=== PATIENT | male | born 1955 | race Two or more races ===

== ENCOUNTER 2018-05-14 09:40 | Emergency (ER) | payer BC, OTHER ==
[2018-05-14 09:50] VITALS: BP 122/89; PULSE 84; TEMP 99; BMI 25.7
[2018-05-14] MEDS ORDERED: ACETAMINOPHEN 500 MG TABLET (FP) PO ONE (11:41)
[2018-05-14] MEDS ORDERED: ACETAMINOPHEN 500 MG TABLET (FP) ONE (11:42)
--- NOTE | 2018-05-14 12:03 | PDOC ---
History of Present Illness - General Chief Complaint: Cold Symptoms Stated Complaint: FEVER, COUGH Time Seen by Provider: 05/14/18 11:36 - History of Present Illness Initial Comments: 05/14/18 12:00 62-year-old male with a past medical history significant for HIV infection and acid reflux presents for evaluation of cough fever chills night sweats 3 days. Past History - Past Medical History Allergies/Adverse Reactions: Allergies Allergy/AdvReac Type Severity Reaction Status Date / Time No Known Allergies Allergy Verified 05/14/18 09:46 Home Medications: Ambulatory Orders Sulfamethoxazole/Trimethoprim [Bactrim Ds -] 1 tab PO BID #14 tablet 05/14/18 COPD: No - Immunization History Immunization Up to Date: Yes - Suicide/Smoking/Psychosocial Hx Smoking History: Never smoked Hx Alcohol Use: No Drug/Substance Use Hx: No Substance Use Type: None Review of Systems - Review of Systems Constitutional: Yes: See HPI, Fever, Malaise, Night Sweats Respiratory: Yes: Cough *Physical Exam - Vital Signs Last Vital Signs Temp Pulse Resp BP Pulse Ox 99.0 F 84 16 122/89 96 05/14/18 09:47 05/14/18 09:47 05/14/18 09:47 05/14/18 09:47 05/14/18 09:47 - Physical Exam Comments: 05/14/18 12:01 HEAD: NC/AT EYES: Conjuntiva clear Ears: Canals and TM's normal NOSE: No d/c THROAT: Moist mucous membrances, oral pharanx clear, uvula midline NECK: Supple without adenopathy CARDIAC: S1 S2 LUNGS: CTA Full and Equal breath sounds ABDOMEN: Soft NT ND MS: Full ROM in all joints without edema NEUROLOGIC: No gross sensory or motor deficits, NVID SKIN: Normal color and temperature no lesions or rashes ED Treatment Course - RADIOLOGY Radiology Studies Ordered: Category Date Time Status CHEST PA & LAT [RAD] Stat Radiology 05/14/18 11:37 Completed - Medications Given in the ED: ED Medications Discontinued Medications Generic Name Dose Route Start Last Admin Trade Name Freq PRN Reason Stop Dose Admin Acetaminophen 1,000 mg 05/14/18 11:41 05/14/18 11:43 Tylenol - PO 05/14/18 11:42 1,000 mg ONCE ONE Administration Medical Decision Making - Medical Decision Making 05/14/18 12:01 Chest x-rays clear benign examination we'll treat with Bactrim due to immunocompromise state *DC/Admit/Observation/Transfer Diagnosis at time of Disposition: Cough - Discharge Dispostion Disposition: HOME Condition at time of disposition: Stable Decision to Admit order: No - Prescriptions Prescriptions: Sulfamethoxazole/Trimethoprim [Bactrim Ds -] 1 tab PO BID #14 tablet - Referrals Referrals: Candelaria Shaikh MD [Primary Care Provider] - - Patient Instructions Additional Instructions: Please take the antibiotics as directed, return to the emergency room should symptoms worsen or go unresolved and follow-up with your primary care provider in one to 2 days for further evaluation and treatment options. Please finish all the antibiotics - Post Discharge Activity
== END 2018-05-14 12:10 | disposition home or self-care (01) ==
LOC: JERFT 09:40
DX: R05 Cough (principal); K21.9 Gastro-esophageal reflux disease without esophagitis; Z21 Asymptomatic human immunodeficiency virus [HIV] infection status
CPT/HCPCS: 71046-TC-FY; 99281-25

== ENCOUNTER 2018-08-03 21:07 | Emergency (ER) | payer OTHER ==
--- NOTE | 2018-08-03 21:10 | PDOC ---
Rapid Medical Evaluation Chief Complaint: Lightheaded Time Seen by Provider: 08/03/18 21:09 Medical Evaluation: Allergies Allergy/AdvReac Type Severity Reaction Status Date / Time No Known Allergies Allergy Verified 06/12/18 08:33 08/03/18 21:10 08/03/18 21:01 I performed a brief in-person evaluation of this patient. Chief complaint: BIBEMS, Feeling dizzy after taking Percocet for shingles Pertinent physical exam findings: Ambulatory without assistance, no focal neurologic deficits I have ordered the following: None Patient to proceed to the ED for further evaluation Discharge Disposition - Diagnosis Dizziness - Referrals - Patient Instructions - Post Discharge Activity
[2018-08-03 21:23] VITALS: BMI 25.7
--- NOTE | 2018-08-03 22:47 | PDOC ---
History of Present Illness - General Chief Complaint: Lightheaded Stated Complaint: Lightheaded Time Seen by Provider: 08/03/18 21:09 History Source: Patient Exam Limitations: No Limitations - History of Present Illness Initial Comments: 08/03/18 22:46 63 year old man w/ a h/o HIV (last CD4 was 775, last viral load undetectable ) brought in by EMS who presents with episode of lightheadedness that started approx 1900 today and lasted 15min after taking percocet medication for shingles pain. The patient notes that symptoms were associated chest palpitations. He reports that he only had some vegetables and fruit today. He reports one episode of nbnb emesis that occurred while in the ED. He currently complains of some dizziness but denies chest pain, shortness of breath, fevers, nausea, vomiting, diarrhea, constipation. Patient reports that his viral load is undetectable His CD4 count is 700 one month ago He takes Genvoya for HAART therapy Past History - Past Medical History Allergies/Adverse Reactions: Allergies Allergy/AdvReac Type Severity Reaction Status Date / Time No Known Allergies Allergy Verified 06/12/18 08:33 Home Medications: Ambulatory Orders Albuterol Sulfate Inhaler - [Ventolin Hfa Inhaler -] 1 - 2 inh PO Q4H 06/12/18 Azithromycin 250 mg PO DAILY 4 Days #4 tablet 06/12/18 Fluticasone Prop 0.05% Nasal [Flonase -] 1 - 2 spray NS DAILY #1 spray.pump Gabapentin [Neurontin] 300 mg PO DAILY 06/12/18 Omeprazole 40 mg PO DAILY 06/12/18 predniSONE [Deltasone -] 40 mg PO DAILY 4 Days #4 tablet 06/12/18 COPD: No CHF: No - Immunization History Immunization Up to Date: Yes - Suicide/Smoking/Psychosocial Hx Smoking History: Never smoked Have you smoked in the past 12 months: No Information on smoking cessation initiated: No Hx Alcohol Use: No Drug/Substance Use Hx: No Substance Use Type: None *Physical Exam - Vital Signs Last Vital Signs Temp Pulse Resp BP Pulse Ox 98.2 F 56 L 20 136/87 100 08/03/18 21:18 08/03/18 21:18 08/03/18 21:18 08/03/18 21:18 08/03/18 21:18 - Physical Exam Comments: 08/03/18 23:30 L sided abdominal shingles patches from abd to back rrr ctab Moderate Sedation - Procedure Monitoring Vital Signs: Procedure Monitoring Vital Signs Temperature 98.2 F 08/03/18 21:18 Pulse Rate 56 L 08/03/18 21:18 Respiratory Rate 20 08/03/18 21:18 Blood Pressure 136/87 08/03/18 21:18 O2 Sat by Pulse Oximetry (%) 100 08/03/18 21:18 ED Treatment Course - LABORATORY CBC & Chemistry Diagram: 08/03/18 23:43 08/03/18 23:43 Medical Decision Making - Medical Decision Making 08/03/18 23:31 63 year old man w/ a h/o HIV (last CD4 was 775, last viral load undetectable ) brought in by EMS who presents with episode of lightheadedness that started approx 1900 today and lasted 15min after taking percocet medication for shingles pain. The patient notes that symptoms were associated chest palpitations. He reports that he only had some vegetables and fruit today. He reports one episode of nbnb emesis that occurred while in the ED. ED Course: r/o acs vs electrolytes derangement likely patient dehydrated *DC/Admit/Observation/Transfer Diagnosis at time of Disposition: Dizziness - Discharge Dispostion Disposition: HOME Condition at time of disposition: Stable Decision to Admit order: No - Referrals Referrals: Candelaria Shaikh MD [Primary Care Provider] - - Patient Instructions Printed Discharge Instructions: DI for Dizziness-Nonvertigo Additional Instructions: You were seen in the ED for complaints of feelings of lightheadedness that lasted 15min. In the ED you were evaluated with labwork and imaging. Your results were unremarkable. There does not appear to be an acute need for immediate hospitalization. You are advised to follow up with your Primary Care Physician within 1 week. Return to the ED immediately if you experience worsening lightheadedness, dizziness, chest pain, nausea, vomiting, fevers or loss of consciousness. - Post Discharge Activity
[2018-08-03] MEDS ORDERED: METOCLOPRAMIDE HCL INJECTION 10 MG/2 ML VIAL IVPUSH ONE (23:05)
[2018-08-03] MEDS ORDERED: SODIUM CHLORIDE 1,000 ML IV SCH (23:15)
--- NOTE | 2018-08-03 23:15 | PDOC ---
Attending Attestation - HPI HPI: 08/03/18 23:56 The patient is a 63 year old female, with a significant PMH of HIV (last CD4 was 775, last viral load undetectable 03/06), shingles, who presents to the emergency department with an episode of lightheadedness at 7pm this evening. The patient states he took Percocet for shingles pain earlier today and 15 minutes later experienced an episode of lightheadedness and associated palpitations prompting the ED visit tonight. The patient denies any syncope or loss of consciousness. The patient states he only ate vegetables and fruit during the day. The patient states he had one episode of non bloody non bilious emesis while in the ER. The patient denies chest pain, shortness of breath, headache. Denies fever, chills, diarrhea and constipation. Denies dysuria, frequency, urgency and hematuria. Allergies: NKA Documentation prepared by Teofilo Espino, acting as medical receptionist biller for Linda Starr MD. <Teofilo Espino - Last Filed: 08/03/18 23:56> - Resident Resident Name: Yulisa Marie - ED Attending Attestation I have performed the following: I have examined & evaluated the patient, The case was reviewed & discussed with the resident, I agree w/resident's findings & plan - Physicial Exam PE: 08/04/18 02:02 Agree with resident exam - Medical Decision Making 08/05/18 04:38 All labs normal and cardiac enzymes normal. Pt has shingles on his left trunk that is causing pain. Pt has some crusted lesions and some [id number] lesions. Pt is aware that the pain from shingles may last for months. <Linda Starr - Last Filed: 08/05/18 04:39>
[2018-08-03] MEDS ORDERED: METOCLOPRAMIDE HCL INJECTION 10 MG/2 ML VIAL ONE (23:46)
[2018-08-03 23:49] LABS: BASO % 0.6 % (0-2.0); EOS % 0.4 % (0-4.5); HEMATOCRIT 37.5 % (35.4-49); HEMOGLOBIN 13.1 GM/dL (11.7-16.9); MCH 32.1 pg (25.7-33.7); MCHC 34.8 g/dl (32.0-35.9); MEAN CELL VOLUME 92.3 fl (80-96); MEAN PLT VOLUME 7.3 fl (7.5-11.1); MONO % 6.7 % (3.8-10.2); NEUT % 75.3 % (42.8-82.8); PLATELET COUNT 222 K/MM3 (134-434); RBC 4.06 M/mm3 (4.00-5.60); RDW 15.1 % (11.9-15.9); WHITE BLOOD COUNT 7.1 K/mm3 (4.0-10.0)
[2018-08-04 01:01] LABS: ALBUMIN 3.9 g/dl (3.4-5.0); ALK PHOS 58 U/L (45-117); ANION GAP 7 MMOL/L (8-16); BILIRUBIN,TOTAL 0.4 mg/dL (0.2-1); BLOOD UREA NITROGEN 11 mg/dL (7-18); CHLORIDE 104 mmol/L (98-107); CO2 29 mmol/L (21-32); CREATININE 0.9 mg/dL (0.55-1.3); GLUCOSE,RANDOM 101 mg/dL (74-106); POTASSIUM 4.2 mmol/L (3.5-5.1); SGOT/AST 45 U/L (15-37); SGPT/ALT 46 U/L (13-61); SODIUM 139 mmol/L (136-145)
[2018-08-04 04:58] VITALS: BP 136/76; PULSE 88; TEMP 98.5
--- NOTE | 2018-08-04 12:58 | EKG ---
Test Reason : Blood Pressure : / mmHG Vent. Rate : 049 BPM Atrial Rate : 049 BPM P-R Int : 208 ms QRS Dur : 098 ms QT Int : 474 ms P-R-T Axes : 021 011 010 degrees QTc Int : 428 ms SINUS BRADYCARDIA EARLY REPOLARIZATION NO PREVIOUS ECGS AVAILABLE Confirmed by YAENTH GAMBOA MD ([id number]) on 08/04/2018 12:58:00 PM Referred By: Confirmed By:YANETH GAMBOA MD
== END 2018-08-04 04:59 | disposition home or self-care (01) ==
LOC: JER 21:07
PROC: 3E033GC Introduction of Other Therapeutic Substance into Peripheral Vein, Percutaneous Approach (ICD-10-PCS; principal; 2018-08-03)
DX: R42 Dizziness and giddiness (principal); B02.23 Postherpetic polyneuropathy; Z21 Asymptomatic human immunodeficiency virus [HIV] infection status
CPT/HCPCS: 36415; 71046-TC-FY; 80053; 82550; 84484; 85025; 93005; 93010; 96374; 99282-25; J7030

== ENCOUNTER 2018-08-05 02:46 | Emergency (ER) | payer OTHER ==
[2018-08-05 03:07] VITALS: TEMP 97.7; BMI 25.7
--- NOTE | 2018-08-05 03:57 | PDOC ---
History of Present Illness - General Chief Complaint: Pain, Acute Stated Complaint: PAIN Time Seen by Provider: 08/05/18 03:33 History Source: Patient Exam Limitations: No Limitations - History of Present Illness Initial Comments: 08/05/18 03:50 Patient is a 63-year-old male with history of HIV positive on HAART c/o pain to the left upper back x 1 week. Patient states has been to the ED at [facility] and has been to this ED and PMD, was given percocet, acyclovair for the pain. Patient states was given Gabapentin as well for neuropathy of the leg but has not taken it. States he is here for a shot that will take his pain away. Complains of feeling very anxious. PMD: Dr. Villaseñor PMHX: as above PSCOHX: ALL: NKDA GENERAL/CONSTITUTIONAL: No fever or chills. No weakness. No weight change. HEAD, EYES, EARS, NOSE AND THROAT: No change in vision. No ear pain or discharge. No sore throat. CARDIOVASCULAR: No chest pain or shortness of breath. RESPIRATORY: No cough, wheezing, or hemoptysis. GASTROINTESTINAL: No nausea, vomiting, diarrhea or constipation. No rectal bleeding. GENITOURINARY: No dysuria, frequency, or change in urination. MUSCULOSKELETAL: No joint or muscle swelling or pain. No neck or back pain. SKIN AND BREASTS: (+) rash (-) easy bruising.] NEUROLOGIC: No headache, vertigo, loss of consciousness, or loss of sensation. PSYCHIATRIC: No depression or anxiety. ENDOCRINE: No increased thirst. No abnormal weight change. HEMATOLOGIC/LYMPHATIC: No anemia, easy bleeding, or history of blood clots. ALLERGIC/IMMUNOLOGIC: No hives or skin allergy. No latex allergy. GENERAL: The patient is awake, alert, and fully oriented, in moderate painful distress, pacing the floor HEAD: Normal with no signs of trauma. EYES: Pupils equal, round and reactive to light, extraocular movements intact, sclera anicteric, conjunctiva clear. ENT: Ears normal, nares patent, oropharynx clear without exudates. Moist mucous membranes. NECK: Normal range of motion, supple without lymphadenopathy, JVD, or masses. LUNGS: Breath sounds equal, clear to auscultation bilaterally. No wheezes, and no crackles. HEART: Regular rate and rhythm, normal S1 and S2 without murmur, rub. ABDOMEN: Soft, nontender, normoactive bowel sounds. No guarding, no rebound. No masses. EXTREMITIES: Normal range of motion, no edema. No clubbing or cyanosis. No cords, erythema, or tenderness. NEUROLOGICAL: Cranial nerves II through XII grossly intact. Normal speech, normal gait. PSYCH: Anxious mood, normal affect. SKIN: Warm, Dry, normal turgor, (+) vesicular rashes on an erythematous base 2 small patches, or lesions noted. Past History - Past Medical History Allergies/Adverse Reactions: Allergies Allergy/AdvReac Type Severity Reaction Status Date / Time No Known Allergies Allergy Verified 08/05/18 03:04 Home Medications: Ambulatory Orders Albuterol Sulfate Inhaler - [Ventolin Hfa Inhaler -] 1 - 2 inh PO Q4H 06/12/18 Fluticasone Prop 0.05% Nasal [Flonase -] 1 - 2 spray NS DAILY #1 spray.pump Gabapentin [Neurontin] 300 mg PO DAILY 06/12/18 Acyclovir [Zovirax -] 800 mg PO TID 08/05/18 Elviteg/Cob/Emtri/Tenof Alafen [Genvoya Tablet] 1 each PO DAILY 08/05/18 Oxycodone HCl/Acetaminophen [Percocet 5-325 mg Tablet] 1 tab PO BID PRN Rabeprazole Sodium 20 mg PO DAILY 08/05/18 COPD: No CHF: No - Immunization History Immunization Up to Date: Yes - Suicide/Smoking/Psychosocial Hx Smoking History: Never smoked Have you smoked in the past 12 months: No Hx Alcohol Use: No Drug/Substance Use Hx: No Substance Use Type: None *Physical Exam - Vital Signs Last Vital Signs Temp Pulse Resp BP Pulse Ox 97.7 F 58 L 18 147/90 96 08/05/18 03:03 08/05/18 03:03 08/05/18 03:03 08/05/18 03:03 08/05/18 03:03 Moderate Sedation - Procedure Monitoring Vital Signs: Procedure Monitoring Vital Signs Temperature 97.7 F 08/05/18 03:03 Pulse Rate 58 L 08/05/18 03:03 Respiratory Rate 18 08/05/18 03:03 Blood Pressure 147/90 08/05/18 03:03 O2 Sat by Pulse Oximetry (%) 96 08/05/18 03:03 Medical Decision Making - Medical Decision Making 08/05/18 03:50 Patient is a 63-year-old male with history of HIV positive on HAART c/o pain to the left upper back x 1 week. Patient states has been to the ED at [facility] and has been to this ED and PMD, was given percocet, acyclovair for the pain. Patient states was given Gabapentin as well for neuropathy of the leg but has not taken it. States he is here for a shot that will take his pain away. Will treat the shingles pain with toradol reassess I discussed the physical exam findings, ancillary test results and final diagnoses with the patient. I answered all of the patient's questions. The patient was satisfied with the care received and felt comfortable with the discharge plan and treatment plan. The Patient agrees to follow up with the primary care physician within 24-72 hours. *DC/Admit/Observation/Transfer Diagnosis at time of Disposition: Shingles (herpes zoster) polyneuropathy - Discharge Dispostion Disposition: HOME Condition at time of disposition: Stable - Referrals Referrals: Candelaria Shaikh MD [Primary Care Provider] - - Patient Instructions Printed Discharge Instructions: DI for Shingles Additional Instructions: Your Discharge Instructions: You must call primary care physician within 24 hours to arrange follow-up. Return to the Emergency Department with any new, persistent or worsening symptoms, for fever, chills, SOB, dizziness or any other concerning changes that may occur. - Post Discharge Activity
[2018-08-05] MEDS ORDERED: KETOROLAC TROMETHAMINE 60 MG/2 ML VIAL IM ONE (04:05)
[2018-08-05] MEDS ORDERED: KETOROLAC TROMETHAMINE 60 MG/2 ML VIAL ONE (04:17)
[2018-08-05 04:49] VITALS: BP 166/93; PULSE 54
== END 2018-08-05 05:29 | disposition home or self-care (01) ==
LOC: JER 02:46
PROC: 3E0233Z Introduction of Anti-inflammatory into Muscle, Percutaneous Approach (ICD-10-PCS; principal; 2018-08-05)
DX: B02.29 Other postherpetic nervous system involvement (principal); Z21 Asymptomatic human immunodeficiency virus [HIV] infection status
CPT/HCPCS: 96372; 99281-25

== ENCOUNTER 2018-09-02 01:25 | Emergency (ER) | payer OTHER ==
[2018-09-02 01:43] VITALS: BP 136/94; PULSE 63; TEMP 97.3; BMI 25.7
--- NOTE | 2018-09-02 03:29 | PDOC ---
History of Present Illness - General Chief Complaint: Blood Pressure Problem Stated Complaint: BLOOD PRESSURE PROBLEM Time Seen by Provider: 09/02/18 02:20 History Source: Patient Exam Limitations: No Limitations - History of Present Illness Initial Comments: 09/02/18 03:26 Best Contact: PCP: Dr. Shaikh Pmhx: 2013:HIV+ Jul 14, 2018 Viral load is undetectable CD 4 count "normal" as per Dr. Weiner (ID) Pshx:0 Allergies:NKDA FH:0 Social Hx: Cigarettes/ 0 Alcohol/ 0 Drugs/0 63-year-old male presents to the emergency department requesting to have his blood pressure taken. Patient states he was using his roommates blood pressure machine wasn't sure whether he was working properly. Patient denies headache, dizziness, lightheadedness, nausea/vomiting, fever/chills, facial pains, neck pain/stiffness, back pains, chest pain, shortness of breath, abdominal pains, flank pains, urinary symptoms, weakness. Past History - Past Medical History Allergies/Adverse Reactions: Allergies Allergy/AdvReac Type Severity Reaction Status Date / Time No Known Allergies Allergy Verified 09/02/18 01:32 Home Medications: Ambulatory Orders Albuterol Sulfate Inhaler - [Ventolin Hfa Inhaler -] 1 - 2 inh PO Q4H 06/12/18 Fluticasone Prop 0.05% Nasal [Flonase -] 1 - 2 spray NS DAILY #1 spray.pump Gabapentin [Neurontin] 300 mg PO DAILY 06/12/18 Acyclovir [Zovirax -] 800 mg PO TID 08/05/18 Elviteg/Cob/Emtri/Tenof Alafen [Genvoya Tablet] 1 each PO DAILY 08/05/18 Oxycodone HCl/Acetaminophen [Percocet 5-325 mg Tablet] 1 tab PO BID PRN Rabeprazole Sodium 20 mg PO DAILY 08/05/18 COPD: No CHF: No - Immunization History Immunization Up to Date: Yes - Suicide/Smoking/Psychosocial Hx Smoking History: Unknown if ever smoked Have you smoked in the past 12 months: No Hx Alcohol Use: No Drug/Substance Use Hx: No Substance Use Type: None Review of Systems - Review of Systems Able to Perform ROS?: Yes Comments:: 09/02/18 03:25 CONSTITUTIONAL: Absent: fever, chills, diaphoresis, generalized weakness, malaise, loss of appetite HEENT: Absent: rhinorrhea, nasal congestion, throat pain, throat swelling, difficulty swallowing, mouth swelling, ear pain, eye pain, visual Changes CARDIOVASCULAR: Absent: chest pain, loss of consciousness, palpitations, irregular heart rate, peripheral edema RESPIRATORY: Absent: cough, shortness of breath, dyspnea with exertion, orthopnea, wheezing, stridor, hemoptysis GASTROINTESTINAL: Absent: abdominal pain, abdominal distension, nausea, vomiting, diarrhea, constipation, melena, hematochezia GENITOURINARY: Absent: dysuria, frequency, urgency, hesitancy, hematuria, flank pain, genital pain MUSCULOSKELETAL: Absent: myalgia, arthralgia, joint swelling SKIN: Absent: rash, itching, pallor HEMATOLOGIC/IMMUNOLOGIC: Absent: easy bleeding, easy bruising, lymphadenopathy, frequent infections ENDOCRINE: Absent: unexplained weight gain, unexplained weight loss, heat intolerance, cold intolerance NEUROLOGIC: Absent: headache, focal weakness or paresthesias, dizziness, unsteady gait, seizure, mental status changes, bladder or bowel incontinence PSYCHIATRIC: Absent: anxiety, depression, suicidal or homicidal ideation, hallucinations. Is the patient limited Romansh proficient: No *Physical Exam - Vital Signs Last Vital Signs Temp Pulse Resp BP Pulse Ox 97.3 F L 63 20 136/94 98 09/02/18 01:39 09/02/18 01:39 09/02/18 01:39 09/02/18 01:39 09/02/18 01:39 - Physical Exam Comments: 09/02/18 03:26 GENERAL: Well developed, well nourished. Awake and alert. No acute distress. HEENT: Normocephalic, atraumatic. PERRLA, EOMI. No conjunctival pallor. Sclera are non- icteric. Moist mucous membranes. Oropharynx is clear. NECK: Supple. Full ROM. No JVD. Carotid pulses 2+ and symmetric, without bruits. No thyromegaly. No lymphadenopathy. CARDIOVASCULAR: Regular rate and rhythm. No murmurs, rubs, or gallops. Distal pulses are 2+ and symmetric. PULMONARY: No evidence of respiratory distress. Lungs clear to auscultation bilaterally. No wheezing, rales or rhonchi. ABDOMINAL: Soft. Non-tender. Non-distended. No rebound or guarding. No organomegaly. Normoactive bowel sounds. MUSCULOSKELETAL Normal range of motion at all joints. No bony deformities or tenderness. No CVA tenderness. EXTREMITIES: No cyanosis. No clubbing. No edema. No calf tenderness. SKIN: Warm and dry. Normal capillary refill. No rashes. No jaundice. NEUROLOGICAL: Alert, awake, appropriate. Cranial nerves 2-12 intact. No deficits to light touch and temperature in face, upper extremities and lower extremities. No motor deficits in the in face, upper extremities and lower extremities. Normoreflexic in the upper and lower extremities. Normal speech. Toes are down- going bilaterally. Gait is normal without ataxia. PSYCHIATRIC: Cooperative. Good eye contact. Appropriate mood and affect. Moderate Sedation - Procedure Monitoring Vital Signs: Procedure Monitoring Vital Signs Temperature 97.3 F L 09/02/18 01:39 Pulse Rate 63 09/02/18 01:39 Respiratory Rate 20 09/02/18 01:39 Blood Pressure 136/94 09/02/18 01:39 O2 Sat by Pulse Oximetry (%) 98 09/02/18 01:39 *DC/Admit/Observation/Transfer Diagnosis at time of Disposition: Blood pressure check - Discharge Dispostion Disposition: HOME Condition at time of disposition: Stable Decision to Admit order: No - Referrals Referrals: Candelaria Shaikh MD [Primary Care Provider] - - Patient Instructions Printed Discharge Instructions: How to Monitor Your Blood Pressure at Home Additional Instructions: It is important for you to follow-up with your physician regarding your blood pressure. Return back to the ER for any concerns - Post Discharge Activity
== END 2018-09-02 02:45 | disposition home or self-care (01) ==
LOC: JER 01:25
DX: Z01.30 Encounter for examination of blood pressure without abnormal findings (principal); Z21 Asymptomatic human immunodeficiency virus [HIV] infection status
CPT/HCPCS: 99281-25

== ENCOUNTER 2018-12-18 02:52 | Emergency (ER) | payer OTHER ==
[2018-12-18 03:03] VITALS: BP 152/43; PULSE 52; TEMP 97.7; BMI 25.7
[2018-12-18] MEDS ORDERED: TETRACAINE 0.5% HCL 0.6ML DROPPER.BOTTLE OU ONE (04:03)
[2018-12-18] MEDS ORDERED: ERYTHROMYCIN 0.5% OPHTHALMIC OINTMENT 3.5 GM TUBE OU ONE (04:03)
[2018-12-18] MEDS ORDERED: FLUORESCEIN NA 1 EA STRIP OU ONE (04:03)
--- NOTE | 2018-12-18 04:03 | PDOC ---
History of Present Illness - General Chief Complaint: Eye Problem Stated Complaint: EYE PROBLEM Time Seen by Provider: 12/18/18 04:02 History Source: Patient - History of Present Illness Initial Comments: 12/18/18 04:36 63 year old male left eye redness and pain, reports that he was taking out his contacts and accidentally scratched the eye. no vision loss or changes Past History - Past Medical History Allergies/Adverse Reactions: Allergies Allergy/AdvReac Type Severity Reaction Status Date / Time No Known Allergies Allergy Verified 12/18/18 03:03 Home Medications: Ambulatory Orders Albuterol Sulfate Inhaler - [Ventolin Hfa Inhaler -] 1 - 2 inh PO Q4H 06/12/18 Elviteg/Cob/Emtri/Tenof Alafen [Genvoya Tablet] 1 each PO DAILY 08/05/18 Rabeprazole Sodium 20 mg PO DAILY 08/05/18 Erythromycin 0.5% Eye Ointment [Erythromycin 0.5% Eye Ointment -] 1 applic OS TID #1 tube 12/18/18 Asthma: Yes COPD: No CHF: No HIV: Yes Other medical history: HIV+ - Immunization History Immunization Up to Date: Yes - Suicide/Smoking/Psychosocial Hx Smoking History: Never smoked Have you smoked in the past 12 months: No Information on smoking cessation initiated: No Hx Alcohol Use: No Drug/Substance Use Hx: No Substance Use Type: None Review of Systems - Review of Systems Able to Perform ROS?: Yes Is the patient limited [place] proficient: No Constitutional: No: Symptoms Reported, See HPI, Chills, Diaphoresis, Fever, Loss of Appetite, Malaise, Night Sweats, Weakness, Weight Stable, Unintentional Wgt. Loss, Unexplained wgt Loss, Other HEENTM: Yes: Eye Pain *Physical Exam - Vital Signs Last Vital Signs Temp Pulse Resp BP Pulse Ox 97.7 F 52 L 17 152/43 L 97 12/18/18 02:58 12/18/18 02:58 12/18/18 02:58 12/18/18 02:58 12/18/18 02:58 - Physical Exam General Appearance: Yes: Appropriately Dressed HEENT: positive: Other (snellen 20/25 lwft eye with glasses. + fleurscein uptake to 3 to 9 o'c lock position, PERRLA) Medical Decision Making - Medical Decision Making 12/18/18 06:08 A: corneal abrasion P: erythromycin outpatient ophthalmology follow up recommended. *DC/Admit/Observation/Transfer Diagnosis at time of Disposition: Corneal abrasion due to contact lens Qualifiers: Laterality: left Qualified Code(s): H18.822 - Corneal disorder due to contact lens, left eye - Discharge Dispostion Disposition: HOME Condition at time of disposition: Fair - Prescriptions Prescriptions: Erythromycin 0.5% Eye Ointment [Erythromycin 0.5% Eye Ointment -] 1 applic OS TID #1 tube - Referrals Referrals: Candelaria Shaikh MD [Primary Care Provider] - - Patient Instructions Printed Discharge Instructions: Corneal Abrasion Additional Instructions: continue erythromycin as prescribed. follow up with an eye doctor as soon as possible. Additional Instructions: * Please call your personal physician to report your Emergency Department visit and to report your progress, if any. * If there is no improvement in symptoms in 2 days call your physician. * Return to the Emergency Department for any worsening symptoms. - Post Discharge Activity Forms/Work/School Notes: Back to Work
--- NOTE | 2018-12-18 04:04 | PDOC ---
*Physical Exam - Vital Signs Last Vital Signs Temp Pulse Resp BP Pulse Ox 97.7 F 52 L 17 152/43 L 97 12/18/18 02:58 12/18/18 02:58 12/18/18 02:58 12/18/18 02:58 12/18/18 02:58 Medical Decision Making - Medical Decision Making 12/18/18 04:04 Patient seen by the advanced practice provider under my direct supervision. Ancillary testing reviewed as necessary. I agree with plan as outlined by the advanced practice provider. *DC/Admit/Observation/Transfer Diagnosis at time of Disposition: Corneal abrasion due to contact lens Qualifiers: Laterality: left Qualified Code(s): H18.822 - Corneal disorder due to contact lens, left eye - Discharge Dispostion Disposition: HOME Condition at time of disposition: Fair - Prescriptions Prescriptions: Erythromycin 0.5% Eye Ointment [Erythromycin 0.5% Eye Ointment -] 1 applic OS TID #1 tube - Referrals Referrals: Candelaria Shaikh MD [Primary Care Provider] - - Patient Instructions Printed Discharge Instructions: Corneal Abrasion Additional Instructions: continue erythromycin as prescribed. follow up with an eye doctor as soon as possible. Additional Instructions: * Please call your personal physician to report your Emergency Department visit and to report your progress, if any. * If there is no improvement in symptoms in 2 days call your physician. * Return to the Emergency Department for any worsening symptoms. - Post Discharge Activity Forms/Work/School Notes: Back to Work
[2018-12-18] MEDS ORDERED: TETRACAINE 0.5% OPHTH SOLN 2 ML BOTTLE ONE (04:17)
[2018-12-18] MEDS ORDERED: FLUORESCEIN NA 1 EA STRIP ONE (04:17)
[2018-12-18] MEDS ORDERED: ERYTHROMYCIN 0.5% OPHTHALMIC OINTMENT 3.5 GM TUBE ONE (04:17)
== END 2018-12-18 04:57 | disposition home or self-care (01) ==
LOC: JER 02:52
PROC: 4A07X0Z Measurement of Visual Acuity, External Approach (ICD-10-PCS; principal; 2018-12-18)
DX: H18.822 Corneal disorder due to contact lens, left eye (principal); J45.909 Unspecified asthma, uncomplicated; Z21 Asymptomatic human immunodeficiency virus [HIV] infection status
CPT/HCPCS: 99173; 99281-25